=== PATIENT | female | born 1935 | race Caucasian/White ===

== ENCOUNTER 2016-07-09 16:03 | Emergency (ER) | payer OTHER ==
[2016-07-09] MEDS ORDERED: DUONEB (A & A) INH ONE ×2 (17:47→19:39)
[2016-07-09] MEDS ORDERED: SOLU-MEDROL IV ONE (17:48)
--- NOTE | 2016-07-09 17:55 | PROVIDER DOCUMENTATION ---
HPI-Respiratory General <Ailyn Zhou - Last Filed: 07/09/16 18:55> - History of Present Illness-Resp Quality of Pain: reports: none Severity in ED: reports: moderate Onset/Duration: reports: 2 days ago Timing: reports: still present Context: denies: recent foreign travel, recent chemotherapy Exposure: reports: illness exposure Cough Quality/Degree: reports: moderate, sputum Episode Frequency: frequent episodes Current Respiratory Medication Therapy: Initiated albuterol/atrovent inhale Modifying Factors: improves with: nothing Associated Symptoms: reports: denies symptoms Similar Symptoms Previously?: Yes Recently seen or treated by another doctor?: No <Tasia Ruiz - Last Filed: 07/09/16 20:00> <Adam Nam - Last Filed: 07/09/16 21:08> - General Chief Complaint: Flu Symptoms Stated Complaint: flu like symptoms Time Seen by Provider: 07/09/16 17:32 Allergies/Adverse Reactions: Patient Allergies Allergy/AdvReac Type Severity Reaction Status Date / Time codeine Allergy Unknown RASH Verified 07/09/16 16:14 Penicillins Allergy Unknown RASH Verified 07/09/16 16:14 adhesive Allergy RASH Verified 07/09/16 16:14 Egg Derived Allergy VOMITING Verified 07/09/16 16:14 aspirin AdvReac Unknown Verified 07/09/16 16:14 Home Medications: Home Medication List Medication Instructions Recorded Confirmed Last Taken Type Albuterol Sulfate [Albuterol 8.5 gm IH Q4-6H PRN PRN #1 07/09/16 Unknown Rx Sulfate Hfa] hfa.aer.ad Fluticasone/Salmet 250/50 INH 14 puff .SEE ORDER DIRECTED 07/09/16 07/09/16 Unknown History [Advair 250/50 Diskus] Ipratropium/Albuterol INH 120 puff .SEE ORDER DIRECTED 07/09/16 07/09/16 Unknown History [Combivent Respimat Inhaler] Levofloxacin [Levaquin] 750 mg PO DAILY #7 tablet 07/09/16 Unknown Rx Metoprolol Succinate 50 mg PO QAM 07/09/16 07/09/16 Unknown History Pravastatin Sodium 40 mg PO QPM 07/09/16 07/09/16 Unknown History Prednisone 60 mg PO DAILY #14 tablet 03/01/17 Unknown Rx - History of Present Illness-Resp Nature of Presenting Problem: A 81 y/o F with multiple PMH presented with complains of new onset of SOB cough along with URI symptoms, had sick contacts recently with URI symptoms, denies CP /n/v/d/luu/abd pain (Tasia Ruiz) Review of Systems - Adult - REVIEW OF SYSTEMS - ADULT Constitutional: reports: no symptoms reported Eyes: reports: no symptoms reported Ears, Nose, Mouth & Throat: reports: no symptoms reported Cardiovascular: reports: no symptoms reported Respiratory: reports: see HPI Gastrointestinal: reports: no symptoms reported Genitourinary: reports: no symptoms reported Musculoskeletal: reports: no symptoms reported Integumentary: reports: no symptoms reported Neurological: reports: no symptoms reported Psychiatric: reports: no symptoms reported Endocrine: reports: no symptoms reported Hematologic/Lymphatic: reports: no symptoms reported Allergic/Immunologic: reports: no symptoms reported All Other Systems: Reviewed and Negative <Tasia Ruiz - Last Filed: 07/09/16 20:00> Past History - Adult - PAST MEDICAL HISTORY-ADULT Review of Records: reports: Old Records Reviewed, Nursing Assessment Review, Medications Reviewed, Social history reviewed & non-contributory. Major Childhood Illnesses: reports: denies history Cardiovascular: reports: denies history Respiratory: reports: asthma, COPD Gastrointestinal: reports: diverticulosis, polyps Obstetrical/Gynecological: reports: fibroids Genitourinary: reports: other (complex cyst, left kidney) Musculoskeletal: reports: spinal fracture (compression fracture of T6) Neurological: reports: denies history Endocrine/Immune: reports: denies history Other Conditions: reports: denies history - PRIOR SURGERIES/PROCEDURES Surgical/Procedure History: reports: colonoscopy, BTL, other (partial colectomy) - PRIOR HOSPITALIZATIONS Prior Hospitalizations: reports: for other non-related - IMMUNIZATION STATUS Childhood Immunizations: See Nurse Assessment Flu Vaccine: See Nurse Assessment - FAMILY HISTORY Family History: cancer (lymphoma. ovarian) <Tasia Ruiz - Last Filed: 07/09/16 20:00> Physical Exam-General - PHYSICAL EXAM-ADULT Initial Vital Signs Reviewed: Yes - CONSTITUTIONAL General Appearance: appears well, mild distress - EYES Eyes: PERRL/EOMI, pink conjunctivae, anisocoria - HEAD, EARS, NOSE, MOUTH & THROAT HENMT: normocephalic/atraumatic, moist mucous membranes, normal ENT inspection - NECK Neck: non-tender, full range of motion - RESPIRATORY Respiratory: rales, rhonchi, wheezing - CARDIOVASCULAR Cardiovascular: normal peripheral pulses, regular rate, rhythm, no edema, no gallop, no JVD - GASTROINTESTINAL (ABDOMEN) Abdominal Exam: normal bowel sounds, non tender, soft - GENITOURINARY Female Genitalia/Pelvic Exam: deferred - MUSCULOSKELETAL Back Exam: normal inspection, no CVA tenderness Extremity: normal range of motion, non-tender - SKIN Integumentary: normal color, normal turgor - NEUROLOGIC Neurologic: commercial loan officer II-XII nml as tested, grossly normal, no motor/sensory deficits - PSYCHIATRIC Psych/Mental Status: normal mood/affect <Tasia Ruiz - Last Filed: 07/09/16 20:00> Progress - EKG 1 Time of EKG reading by physician:: 18:39 EKG Read and Signed by:: Kristian Stephen EKG Interpretation (*Must complete 3 of following elements*): Abnormal Rate: 84 Rhythm: NSR with frequent PACs Comments: left anterior fascicular block <Ailyn Zhou - Last Filed: 07/09/16 18:55> - XRAY 1 XRAY Study: Chest Impression: See EMR Report (unchanged from previous one) - CHANGE OF SHIFT REPORT (ED Provider) Report Given and Care Transferred to:: Arun Nam Items Pending: Labs <Tasia Ruiz - Last Filed: 07/09/16 20:00> - CT/MRI 1 CT Study: Thorax (No definite PE, COPD, Otherwise NAD ([place])) CT Results: See note <Adam Nam - Last Filed: 07/09/16 21:08> - PLAN OF CARE/RESULTS Progress/Plan/Lab Results: Laboratory Tests 07/09/16 07/09/16 07/09/16 18:15 18:15 18:15 WBC 6.15 RBC 5.13 Hgb 15.8 Hct 48.0 H MCV 93.6 MCH 30.8 MCHC 32.9 L RDW Std Deviation 13.7 Plt Count 154 MPV 11.8 H Immature Gran % (Auto) 0.3 Neut % (Auto) 65.7 Lymph % (Auto) 15.0 L [place] % (Auto) 18.0 H Eos % (Auto) 0.5 Baso % (Auto) 0.5 Immature Gran # (Auto) 0.02 Neut # (Auto) 4.04 Lymph # (Auto) 0.92 L [place] # (Auto) 1.11 H Eos # (Auto) 0.03 Baso # (Auto) 0.03 PT INR PTT (Actin FS) Sodium 141 Potassium 4.2 Chloride 101 Carbon Dioxide 26 Anion Gap 14 BUN 16 Creatinine 0.9 Estimated GFR/1.73 m2 60 BUN/Creatinine Ratio 18 Glucose 103 Calculated Osmolality 283 Calcium 9.3 Magnesium 2.2 Total Bilirubin 0.33 AST 16 ALT 10 Alkaline Phosphatase 85 Creatine Kinase 37 Troponin T Gmx-Y-Ughqdkpduat Pept 246 Total Protein 6.6 Albumin 3.9 Globulin 2.7 Albumin/Globulin Ratio 1.4 07/09/16 07/09/16 18:15 18:15 WBC RBC Hgb Hct MCV MCH MCHC RDW Std Deviation Plt Count MPV Immature Gran % (Auto) Neut % (Auto) Lymph % (Auto) [place] % (Auto) Eos % (Auto) Baso % (Auto) Immature Gran # (Auto) Neut # (Auto) Lymph # (Auto) [place] # (Auto) Eos # (Auto) Baso # (Auto) PT 10.5 INR 0.99 PTT (Actin FS) 28.3 Sodium Potassium Chloride Carbon Dioxide Anion Gap BUN Creatinine Estimated GFR/1.73 m2 BUN/Creatinine Ratio Glucose Calculated Osmolality Calcium Magnesium Total Bilirubin AST ALT Alkaline Phosphatase Creatine Kinase Troponin T < 0.010 Msg-T-Afjnwiricwq Pept Total Protein Albumin Globulin Albumin/Globulin Ratio Orders Category Date Time Status Cardiac Monitoring DIRECTED Care 07/09/16 17:46 Active Saline Loc NOW Care 07/09/16 17:46 Active CHEST-2 VIEWS [RAD] Stat Exams 07/09/16 17:46 Taken CBC WITH ELECTRONIC DIFF [HEME] Stat Lab 07/09/16 18:15 Completed CK PROFILE [SP CHEM] Stat Lab 07/09/16 18:15 Completed COMPREHENSIVE METABOLIC PANEL [CHEM] Stat Lab 07/09/16 18:15 Completed DIRECT STREP Stat Lab 07/09/16 16:07 Completed INFLUENZA SCREEN A/B Stat Lab 07/09/16 16:07 Completed MAGNESIUM [CHEM] Stat Lab 07/09/16 18:15 Completed PRO B-NATRIURETIC PEPTIDE Stat Lab 07/09/16 18:15 Completed PROTIME WITH INR [COAG] Stat Lab 07/09/16 18:15 Completed PTT [COAG] Stat Lab 07/09/16 18:15 Completed TROPONIN T Stat Lab 07/09/16 18:15 Completed Albuterol 2.5MG/Ipratrop 0.5MG [Duoneb (A & A)] Med 07/09/16 17:47 Discontinued 3 ml INH NOW ONE Albuterol 2.5MG/Ipratrop 0.5MG [Duoneb (A & A)] Med 07/09/16 19:39 Discontinued 3 ml INH NOW ONE Levofloxacin 750 mg/D5w [Levaquin 750 mg/D5w] 150 ml Med 07/09/16 19:39 Active IV NOW Methylprednisolone Sod Succ [Solu-Medrol] Med 07/09/16 17:48 Discontinued 125 mg IV NOW ONE Aerosol Treatments Routine Oth 07/09/16 17:47 Active Aerosol Treatments Routine Oth 07/09/16 19:39 Active Aerosol Treatments Stat Oth 07/09/16 17:47 Active Aerosol Treatments Stat Oth 07/09/16 19:39 Active EKG [EKG] Stat Ther 07/09/16 17:46 Ordered Vital Signs Temp Pulse Resp BP Pulse Ox 07/09/16 18:49 90 23 105/65 92 L 07/09/16 16:04 99.5 F 58 L 20 102/53 95 codeine Allergy (Unknown, Verified 07/09/16 16:14) RASH Penicillins Allergy (Unknown, Verified 07/09/16 16:14) RASH adhesive Allergy (Verified 07/09/16 16:14) RASH Egg Derived Allergy (Verified 07/09/16 16:14) VOMITING aspirin Adverse Reaction (Verified 07/09/16 16:14) Unknown Bleeding Fluticasone/Salmet 250/50 INH [Advair 250/50 Diskus] 14 puff .SEE ORDER DIRECTED 07/09/16 Ipratropium/Albuterol INH [Combivent Respimat Inhaler] 120 puff .SEE ORDER DIRECTED 07/09/16 Metoprolol Succinate 50 mg PO QAM 07/09/16 Pravastatin Sodium 40 mg PO QPM 07/09/16 Laboratory 07/09/16 07/09/16 07/09/16 18:15 18:15 18:15 WBC RBC Hgb Hct MCV MCH MCHC RDW Std Deviation Plt Count MPV Immature Gran % (Auto) Neut % (Auto) Lymph % (Auto) [place] % (Auto) Eos % (Auto) Baso % (Auto) Immature Gran # (Auto) Neut # (Auto) Lymph # (Auto) [place] # (Auto) Eos # (Auto) Baso # (Auto) PT 10.5 INR 0.99 PTT (Actin FS) 28.3 Sodium Potassium Chloride Carbon Dioxide Anion Gap BUN Creatinine Estimated GFR/1.73 m2 BUN/Creatinine Ratio Glucose Calculated Osmolality Calcium Magnesium Total Bilirubin AST ALT Alkaline Phosphatase Creatine Kinase Troponin T < 0.010 Pkg-W-Obdhowzecqn Pept 246 Total Protein Albumin Globulin Albumin/Globulin Ratio 07/09/16 07/09/16 18:15 18:15 WBC 6.15 RBC 5.13 Hgb 15.8 Hct 48.0 H MCV 93.6 MCH 30.8 MCHC 32.9 L RDW Std Deviation 13.7 Plt Count 154 MPV 11.8 H Immature Gran % (Auto) 0.3 Neut % (Auto) 65.7 Lymph % (Auto) 15.0 L [place] % (Auto) 18.0 H Eos % (Auto) 0.5 Baso % (Auto) 0.5 Immature Gran # (Auto) 0.02 Neut # (Auto) 4.04 Lymph # (Auto) 0.92 L [place] # (Auto) 1.11 H Eos # (Auto) 0.03 Baso # (Auto) 0.03 PT INR PTT (Actin FS) Sodium 141 Potassium 4.2 Chloride 101 Carbon Dioxide 26 Anion Gap 14 BUN 16 Creatinine 0.9 Estimated GFR/1.73 m2 60 BUN/Creatinine Ratio 18 Glucose 103 Calculated Osmolality 283 Calcium 9.3 Magnesium 2.2 Total Bilirubin 0.33 AST 16 ALT 10 Alkaline Phosphatase 85 Creatine Kinase 37 Troponin T Kbu-Z-Pikzzpyfzax Pept Total Protein 6.6 Albumin 3.9 Globulin 2.7 Albumin/Globulin Ratio 1.4 (Tasia Ruiz) Discussed results and plan of care with patient. Patient agrees with plan and verbalizes understanding. Vital Signs Temp Pulse Resp BP Pulse Ox 07/09/16 20:29 99 H 18 07/09/16 19:45 91 H 21 107/73 91 L 07/09/16 18:49 90 23 105/65 92 L 07/09/16 16:04 99.5 F 58 L 20 102/53 95 codeine Allergy (Unknown, Verified 07/09/16 16:14) RASH Penicillins Allergy (Unknown, Verified 07/09/16 16:14) RASH adhesive Allergy (Verified 07/09/16 16:14) RASH Egg Derived Allergy (Verified 07/09/16 16:14) VOMITING aspirin Adverse Reaction (Verified 07/09/16 16:14) Unknown Bleeding Albuterol Sulfate [Albuterol Sulfate Hfa] 8.5 gm IH Q4-6H PRN PRN #1 hfa.aer.ad 07/09/16 Fluticasone/Salmet 250/50 INH [Advair 250/50 Diskus] 14 puff .SEE ORDER DIRECTED 07/09/16 Ipratropium/Albuterol INH [Combivent Respimat Inhaler] 120 puff .SEE ORDER DIRECTED 07/09/16 Levofloxacin [Levaquin] 750 mg PO DAILY #7 tablet 07/09/16 Metoprolol Succinate 50 mg PO QAM 07/09/16 Pravastatin Sodium 40 mg PO QPM 07/09/16 Prednisone 60 mg PO DAILY #14 tablet 07/09/16 Laboratory 07/09/16 07/09/16 07/09/16 19:50 18:15 18:15 WBC RBC Hgb Hct MCV MCH MCHC RDW Std Deviation Plt Count MPV Immature Gran % (Auto) Neut % (Auto) Lymph % (Auto) [place] % (Auto) Eos % (Auto) Baso % (Auto) Immature Gran # (Auto) Neut # (Auto) Lymph # (Auto) [place] # (Auto) Eos # (Auto) Baso # (Auto) PT 10.5 INR 0.99 PTT (Actin FS) 28.3 D-Dimer 0.86 H Sodium Potassium Chloride Carbon Dioxide Anion Gap BUN Creatinine Estimated GFR/1.73 m2 BUN/Creatinine Ratio Glucose Calculated Osmolality Calcium Magnesium Total Bilirubin AST ALT Alkaline Phosphatase Creatine Kinase Troponin T < 0.010 Hsw-Y-Cttjydpcwtz Pept Total Protein Albumin Globulin Albumin/Globulin Ratio 07/09/16 07/09/16 07/09/16 18:15 18:15 18:15 WBC 6.15 RBC 5.13 Hgb 15.8 Hct 48.0 H MCV 93.6 MCH 30.8 MCHC 32.9 L RDW Std Deviation 13.7 Plt Count 154 MPV 11.8 H Immature Gran % (Auto) 0.3 Neut % (Auto) 65.7 Lymph % (Auto) 15.0 L [place] % (Auto) 18.0 H Eos % (Auto) 0.5 Baso % (Auto) 0.5 Immature Gran # (Auto) 0.02 Neut # (Auto) 4.04 Lymph # (Auto) 0.92 L [place] # (Auto) 1.11 H Eos # (Auto) 0.03 Baso # (Auto) 0.03 PT INR PTT (Actin FS) D-Dimer Sodium 141 Potassium 4.2 Chloride 101 Carbon Dioxide 26 Anion Gap 14 BUN 16 Creatinine 0.9 Estimated GFR/1.73 m2 60 BUN/Creatinine Ratio 18 Glucose 103 Calculated Osmolality 283 Calcium 9.3 Magnesium 2.2 Total Bilirubin 0.33 AST 16 ALT 10 Alkaline Phosphatase 85 Creatine Kinase 37 Troponin T Vyf-V-Wywggatzkap Pept 246 Total Protein 6.6 Albumin 3.9 Globulin 2.7 Albumin/Globulin Ratio 1.4 Orders Category Date Time Status Cardiac Monitoring DIRECTED Care 07/09/16 17:46 Active Saline Loc NOW Care 07/09/16 17:46 Active CHEST-2 VIEWS [RAD] Stat Exams 07/09/16 17:46 Taken CTA [ANGIOGRAM/PULMONARY ARTERIES] [CT] Stat Exams 07/09/16 20:20 Taken CBC WITH ELECTRONIC DIFF [HEME] Stat Lab 07/09/16 18:15 Completed CK PROFILE [SP CHEM] Stat Lab 07/09/16 18:15 Completed COMPREHENSIVE METABOLIC PANEL [CHEM] Stat Lab 07/09/16 18:15 Completed DIRECT STREP Stat Lab 07/09/16 16:07 Completed Ddimer [D-DIMER] [CHEM] Stat Lab 07/09/16 19:50 Completed INFLUENZA SCREEN A/B Stat Lab 07/09/16 16:07 Completed MAGNESIUM [CHEM] Stat Lab 07/09/16 18:15 Completed PRO B-NATRIURETIC PEPTIDE Stat Lab 07/09/16 18:15 Completed PROTIME WITH INR [COAG] Stat Lab 07/09/16 18:15 Completed PTT [COAG] Stat Lab 07/09/16 18:15 Completed TROPONIN T Stat Lab 07/09/16 18:15 Completed Albuterol 2.5MG/Ipratrop 0.5MG [Duoneb (A & A)] Med 07/09/16 17:47 Discontinued 3 ml INH NOW ONE Albuterol 2.5MG/Ipratrop 0.5MG [Duoneb (A & A)] Med 07/09/16 19:39 Discontinued 3 ml INH NOW ONE Levofloxacin 750 mg/D5w [Levaquin 750 mg/D5w] 150 ml Med 07/09/16 19:39 Active IV NOW Methylprednisolone Sod Succ [Solu-Medrol] Med 07/09/16 17:48 Discontinued 125 mg IV NOW ONE Aerosol Treatments Routine Oth 07/09/16 17:47 Completed Aerosol Treatments Routine Oth 07/09/16 19:39 Completed Aerosol Treatments Stat Oth 07/09/16 17:47 Completed Aerosol Treatments Stat Oth 07/09/16 19:39 Completed EKG [EKG] Stat Ther 07/09/16 17:46 Ordered Laboratory Tests 07/09/16 07/09/16 07/09/16 18:15 18:15 18:15 WBC 6.15 RBC 5.13 Hgb 15.8 Hct 48.0 H MCV 93.6 MCH 30.8 MCHC 32.9 L RDW Std Deviation 13.7 Plt Count 154 MPV 11.8 H Immature Gran % (Auto) 0.3 Neut % (Auto) 65.7 Lymph % (Auto) 15.0 L [place] % (Auto) 18.0 H Eos % (Auto) 0.5 Baso % (Auto) 0.5 Immature Gran # (Auto) 0.02 Neut # (Auto) 4.04 Lymph # (Auto) 0.92 L [place] # (Auto) 1.11 H Eos # (Auto) 0.03 Baso # (Auto) 0.03 PT INR PTT (Actin FS) D-Dimer Sodium 141 Potassium 4.2 Chloride 101 Carbon Dioxide 26 Anion Gap 14 BUN 16 Creatinine 0.9 Estimated GFR/1.73 m2 60 BUN/Creatinine Ratio 18 Glucose 103 Calculated Osmolality 283 Calcium 9.3 Magnesium 2.2 Total Bilirubin 0.33 AST 16 ALT 10 Alkaline Phosphatase 85 Creatine Kinase 37 Troponin T Hdx-B-Bnffbesyhqs Pept 246 Total Protein 6.6 Albumin 3.9 Globulin 2.7 Albumin/Globulin Ratio 1.4 07/09/16 07/09/16 07/09/16 18:15 18:15 19:50 WBC RBC Hgb Hct MCV MCH MCHC RDW Std Deviation Plt Count MPV Immature Gran % (Auto) Neut % (Auto) Lymph % (Auto) [place] % (Auto) Eos % (Auto) Baso % (Auto) Immature Gran # (Auto) Neut # (Auto) Lymph # (Auto) [place] # (Auto) Eos # (Auto) Baso # (Auto) PT 10.5 INR 0.99 PTT (Actin FS) 28.3 D-Dimer 0.86 H Sodium Potassium Chloride Carbon Dioxide Anion Gap BUN Creatinine Estimated GFR/1.73 m2 BUN/Creatinine Ratio Glucose Calculated Osmolality Calcium Magnesium Total Bilirubin AST ALT Alkaline Phosphatase Creatine Kinase Troponin T < 0.010 Aqr-X-Fixceyrmquj Pept Total Protein Albumin Globulin Albumin/Globulin Ratio (Adam Nam) Departure <Ailyn Zhou - Last Filed: 07/09/16 18:55> - Departure Time of Disposition Order: 19:44 Certified Medical Emergency: Emergent <Tasia Ruiz - Last Filed: 07/09/16 20:00> - Departure Time of Disposition Order: 21:07 Certified Medical Emergency: Emergent <Adam Nam - Last Filed: 07/09/16 21:08> - Departure DIAGNOSIS: COPD exacerbation, Cough URI (upper respiratory infection) Qualifiers: URI type: unspecified URI Qualified Code(s): J06.9 - Acute upper respiratory infection, unspecified Disposition: HOME 01 Condition: Good Additional Instructions: Follow up with primary care physician Take medications as directed Return to ED for any concerns or worsening of symptoms ED Follow Up Instructions: You have been treated by a care provider in the Emergency Department. These instructions are being provided to you so you can have an understanding of how to care for yourself upon discharge. Upon discharge from the Emergency Department, you are responsible for making arrangements for follow-up care by a physician of your choice. Take all prescribed medications as directed. Return to the Emergency Department immediately for any new or worsening symptoms. You may call the Physician Referral phone number at [phone] to obtain a list of Physicians who are taking new patients. Prescriptions: Albuterol Sulfate [Albuterol Sulfate Hfa] 8.5 gm IH Q4-6H PRN PRN #1 hfa.aer.ad PRN Reason: wheezing, short of breath Levofloxacin [Levaquin] 750 mg PO DAILY #7 tablet Prednisone 60 mg PO DAILY #14 tablet Referrals: Leni Tatum MD [Primary Care Provider] - Instructions: Chronic Obstructive Pulmonary Disease Exacerbation, Dynl-[id number] , Cough, Adult, [id number]-[id number], Upper Respiratory Infection, Adult, Deiq-[id number] Attestation - Physician/ REJI Attestation Patient care was provided by Advanced Practice Provider:: Yes Advanced Practice Provider:: Adam Nam Advanced Practice Provider documentation review:: The Mid-level provider documentation, treatment plan and medical decision making was reviewed by the physician who agrees with all treatment and medical decision making by the MLP. The physician spent face to face time with patient:: Yes <Adam Nam - Last Filed: 07/09/16 21:08> Physician Attestation
[2016-07-09 18:39] LABS: MANUAL DIFF NEEDED? NO
[2016-07-09 18:41] LABS: BASO% 0.5 % (0.0-0.8); EOS# 0.03 X1000 (0.0-0.7); EOS% 0.5 % (0.0-10.0); HEMOGLOBIN 15.8 g/dL (12.0-16.0); IMM GRAN# 0.02 X1000 (0.0-0.04); IMM GRAN% 0.3 % (0.0-0.5); LYMPH# 0.92 X1000 (1.2-3.4); MCH 30.8 PG (27-31); MCHC 32.9 g/dL (33-37); MCV 93.6 FL (81-99); MONO# 1.11 X1000 (0.11-0.59); MPV 11.8 FL (7.4-10.4); NEUT% 65.7 % (42.2-75.2); PLT 154 X1000 (130-400); RBC 5.13 XMIL (4.2-5.4)
[2016-07-09 18:50] LABS: INR 0.99; PROTIME 10.5 Seconds (9.2-11.7); PTT 28.3 Seconds (22.0-36.0)
[2016-07-09 19:06] LABS: ALBUMIN 3.9 g/dL (3.5-5.0); CALCIUM 9.3 mg/dL (8.8-10.2); MAGNESIUM 2.2 mg/dL (1.5-2.7); POTASSIUM 4.2 mmol/L (3.5-5.1); TOTAL BILIRUBIN 0.33 mg/dL (0.20-1.00); TOTAL PROTEIN 6.6 g/dL (6.3-8.3)
[2016-07-09] MEDS ORDERED: LEVAQUIN 750 MG/D5W 150 ML IV ONE (19:39)
[2016-07-09 19:46] VITALS: BP 107/73
--- NOTE | 2016-07-10 05:49 | EKG Report ---
Test Performed on : 07/09/2016 6:39:58 PM Test Reason : SOB Blood Pressure : / mmHG Vent. Rate : 084 BPM Atrial Rate : 083 BPM P-R Int : 000 ms QRS Dur : 094 ms QT Int : 376 ms P-R-T Axes : 000 -62 058 degrees QTc Int : 444 ms Atrial fibrillation. Left anterior fascicular block Abnormal ECG When compared with ECG of 30-MAY-2013 15:41, Atrial fibrillation. has replaced Sinus rhythm. Unconfirmed Result
--- NOTE | 2016-07-10 06:34 | Diag Imaging Result Document ---
PROCEDURE NAME: CHEST-2 VIEWS - 07/09/2016 FRONTAL AND LATERAL CHEST, TWO VIEWS: COMPARISON: Compared to 08/19/2014. FINDINGS: The lungs are well expanded. Mild increased AP diameter to the chest. Heart is enlarged. There is mild central vascular prominence. No pleural effusions. No consolidation. No free air beneath the diaphragm. There is calcified granuloma in the upper right lung. IMPRESSION: 1. Mild cardiomegaly with mild central vascular distension. 2. Emphysema.
--- NOTE | 2016-07-10 08:29 | Diag Imaging Result Document ---
PROCEDURE NAME: ANGIOGRAM/PULMONARY ARTERIES - 07/09/2016 CT OF THE CHEST WITH INTRAVENOUS CONTRAST: FINDINGS: There are no previous thoracic studies. There is an ill-defined low attenuation mass in the right thyroid lobe measuring 2.5 cm in diameter. There is some subcarinal and right hilar adenopathy. There are no apparent filling defects in the pulmonary arteries. The aorta is slightly ectatic, the ascending aorta measuring up to 4.3 cm in diameter. There is no evidence of dissection. There are no abnormal fluid collections present. 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 There is apparent COPD. There is apparent fibrosis or atelectasis in the costophrenic sulci bilaterally. This was not apparent on the abdominal study of 08/12/2014. There is a low-attenuation lesion posteriorly in the right hepatic lobe on image 168 which was also present at the time of the previous study. IMPRESSION: No evidence of pulmonary emboli. Bibasilar atelectasis. Ectasia of the ascending aorta. Minimal mediastinal and right hilar adenopathy. Right thyroid mass.
== END 2016-07-09 22:09 | disposition home or self-care (01) ==
LOC: EDBD → EDUNIT# → ED 16:03
DX: J44.1 Chronic obstructive pulmonary disease with (acute) exacerbation (principal); J06.9 Acute upper respiratory infection, unspecified; R05 Cough; R94.31 Abnormal electrocardiogram [ECG] [EKG]; R06.02 Shortness of breath; R06.2 Wheezing; J45.909 Unspecified asthma, uncomplicated; Z79.899 Other long term (current) drug therapy; Z90.49 Acquired absence of other specified parts of digestive tract
CPT/HCPCS: 71020; 71275; 80053; 82550; 83735; 83880; 84484; 85025; 85379; 85610; 85730; 87081; 87430; 87804; 93005; 94640; J2930; Q9967

== ENCOUNTER 2017-01-27 17:17 | Inpatient (IN) ==
[2017-01-27] MEDS ORDERED: XANAX PO PRN (18:06)
[2017-01-27] MEDS: ZOFRAN IV PRN (18:53)
[2017-01-27] MEDS: DILAUDID IV PRN ×2 (18:55→22:21)
[2017-01-27] MEDS: DUONEB (A & A) INH PRN (19:13)
[2017-01-27] MEDS: ADVAIR 250/50 DISKUS INH SCH (21:10)
--- NOTE | 2017-01-27 21:41 | HISTORY AND PHYSICAL ---
CHIEF COMPLAINT: Intractable mid back pain after a fall for the last 1 week. HISTORY OF PRESENT ILLNESS: She is an 81-year-old white female who was evaluated in my office with a fall, sustained injury to the mid back, pain. Initial x-rays were negative. She was sent home on symptomatic treatment. She returned to the office without any improvement. She was given a steroid shot, followed by MRI thoracic spine. It showed a T4 compression fracture with mild retropulsion with ventral effacement. No myelopathy signs. No weakness in both legs other than pain at the mid back radiating towards the left side. Basically admitted to the hospital for conservative management. If fails to improve, we will transfer to [facility] for kyphoplasty. PAST MEDICAL HISTORY: Nonobstructive CAD with LAD disease. COPD. History of shingles on the right T6, 2014. Compression fracture at T4. Tobacco abuse. Diverticulosis. Osteopenia. B12 deficiency. Anemia. Paroxysmal tachycardia, status post ablation. Complex left renal cyst, stable. Uterine fibroids. Vitamin D deficiency. PAST SURGICAL HISTORY: Partial colectomy. Tubal . Bilateral cataract surgery. Ablation, Fall 2014. MEDICATIONS: Advair 1 puff p.o. b.i.d., Coreg 3.125 p.o. b.i.d., Lasix 20 daily, Medrol Dosepak, metoprolol 50 daily, [place] 7.5 b.i.d., Spiriva 18 mcg daily, sulindac 200 daily, vitamin D 50,000 units once a week, Wellbutrin 150 daily, Zanaflex 4 mg daily. ALLERGIES: Codeine. Keflex. Penicillin. SOCIAL HISTORY: . One son. Lives in [place]. Quit smoking 2 months ago. Housewife. FAMILY HISTORY: Father of old age at 96 from hip fracture complications. Mother of ovarian cancer at 70. Sister had stomach cancer and lymphoma. HEALTH MAINTENANCE: Flu vaccine refused. Pneumococcal vaccine 2016. DEXA scan 2014. Pap smear 2011. Colonoscopy 10/2014. REVIEW OF SYSTEMS: HEENT: No headache. No vision problem. No earache. No sore throat. Neck: No goiter. No lymphadenopathy. No bruit. Cardiopulmonary: No chest pain, shortness of breath, wheezing. Mid back pain radiating to the left side, pain is unbearable, 9/10. GI: No nausea, vomiting, abdominal pain. No altered bowel habits. No bleeding per rectum. : No history of hesitancy, frequency, hematuria, dysuria. Extremities: No swelling of feet. No weakness in the legs. No lower back pain. Neurologic: No obvious weakness. PHYSICAL EXAMINATION: VITAL SIGNS: Afebrile. Pulse is 75. Blood pressure is 120/75. 5 feet 6 inches tall, 165 pounds. Oxygen saturation is 92% on room air. HEENT: Atraumatic, normocephalic. Pupils equal, reactive to light. TMs are normal. Nose and throat within normal limits. NECK: Supple. No lymphadenopathy. No goiter. CHEST: Bilateral air entry. Expiratory wheezing. HEART: Heart sounds are regular. BREAST: Exam deferred. ABDOMEN: Belly is soft, nontender. Good bowel sounds. No masses palpable. No peripheral edema, cyanosis. NEUROLOGIC: No obvious neurological deficits. LABORATORIES/IMAGING: MRI of thoracic spine: T4 compression fracture with mild retropulsion with mild effacement of ventral thecal sac. No cord compression. ASSESSMENT AND PLAN: An 81-year-old white female admitted to the hospital with acute T4 compression fracture with ventral effacement, unbearable pain. Plan is conservative management. 1. IV steroids, IV hydromorphone and IV Zofran. 2. Back brace. 3. Physical therapy consult. 4. DVT, GI prophylaxis with Lovenox, Protonix. 5. Reconcile home medicine. 6. COPD, bronchodilators as directed. If things will not get better, consider going to the outpatient clinic with spine and neurology for kyphoplasty. cc: John Tatum MD
[2017-01-27] MEDS: PRAVACHOL PO SCH (22:40)
[2017-01-27] MEDS: PROTONIX IV SCH (22:40)
[2017-01-27] MEDS: SOLU-MEDROL IV SCH (22:41)
[2017-01-28] MEDS: ZOFRAN IV PRN (04:00)
[2017-01-28] MEDS: DILAUDID IV PRN ×4 (04:00→19:53)
[2017-01-28] MEDS: SOLU-MEDROL IV SCH ×3 (07:18→23:02)
[2017-01-28] MEDS: SPIRIVA INH SCH (07:30)
[2017-01-28] MEDS: ADVAIR 250/50 DISKUS INH SCH ×2 (07:33→21:20)
[2017-01-28] MEDS: LOVENOX SUBQ SCH (08:07)
[2017-01-28] MEDS: COREG PO SCH (08:07)
[2017-01-28] MEDS ORDERED: DUONEB (A & A) INH ONE (12:24)
[2017-01-28] MEDS: DUONEB (A & A) INH PRN (12:37)
--- NOTE | 2017-01-28 13:59 | Diag Imaging Result Doc PS360 ---
EXAM: CHEST-2 VIEWS HISTORY: sob, decreased 02 sat TECHNIQUE: PA and lateral chest COMMENT: There is no evidence of acute cardiac or pulmonary disease. There is some apparent fibrosis in the left costophrenic angle which has not changed since 07/31/2016. There is been no apparent change since 07/26/2016. IMPRESSION: Stable chest. Electronically signed by Oziel Yarbrough 01/28/2017 1:56 PM
[2017-01-28] MEDS: SODIUM CHLORIDE 0.9% INJ SCH (19:59)
[2017-01-28] MEDS: PRAVACHOL PO SCH (19:59)
[2017-01-28] MEDS: PROTONIX IV SCH (23:03)
--- NOTE | 2017-01-28 23:03 | PROGRESS NOTE ---
DATE: 01/28/2017 SUBJECTIVE: The patient pain is a little better, 4/10. No radiation. No focal symptoms. REVIEW OF SYSTEMS: Shortness of breath, and little bit anxiety. OBJECTIVE: Vital signs: Temperature is 97 degrees, blood pressure is 120/61, 5 feet 6 inches, 165 pounds. Oxygen saturation is 92% on nasal cannula. HEENT: Within normal limits. Neck: Supple. No lymphadenopathy. Chest: Wheezing. Heart: Sounds are regular. Abdomen: Belly is soft, nontender. Good bowel sounds. No masses palpable. Extremities: No peripheral edema, cyanosis. Neurologic: No obvious neurological deficits. INVESTIGATIONS: Chest x-ray: Stable chest. ASSESSMENT AND PLAN: 1. T4 compression fracture. Continue on hydromorphone, IV steroids and also will begin with calcitonin nasal spray, back brace. 2. COPD, continue on nebulizers, Spiriva and Breo. 3. DVT, GI prophylaxis. As per the order sheet. 4. Hyperlipidemia. On Pravachol. We will follow up. We will make the arrangements as an outpatient to see the spine surgeon for kyphoplasty. LEVEL OF DOCUMENTATION: 25 minutes. cc: John Tatum MD
[2017-01-29] MEDS: SOLU-MEDROL IV SCH ×3 (06:24→22:14)
[2017-01-29] MEDS: DUONEB (A & A) INH PRN ×2 (09:00→15:20)
[2017-01-29] MEDS: ADVAIR 250/50 DISKUS INH SCH ×2 (09:00→20:01)
[2017-01-29] MEDS ORDERED: FORTICAL NAS SCH (09:00)
[2017-01-29] MEDS: SPIRIVA INH SCH (09:16)
[2017-01-29] MEDS: COREG PO SCH (10:18)
[2017-01-29] MEDS: LOVENOX SUBQ SCH (10:18)
[2017-01-29] MEDS: DILAUDID IV PRN ×3 (10:37→22:23)
[2017-01-29] MEDS: PROTONIX IV SCH (22:14)
[2017-01-29] MEDS: PRAVACHOL PO SCH (22:14)
[2017-01-29] MEDS: SODIUM CHLORIDE 0.9% INJ SCH (22:14)
[2017-01-30] MEDS: SOLU-MEDROL IV SCH (06:33)
--- NOTE | 2017-01-30 06:35 | PROGRESS NOTE ---
DATE: 01/29/2017 SUBJECTIVE: Pain is better 1/10, a little bit shortness of breath. Itching from Spiriva. REVIEW OF SYSTEMS: None reported. PHYSICAL EXAMINATION: Afebrile. Vitals are stable.HEENT: Within normal limits. Neck: Supple. No lymphadenopathy. Chest: Clear. Heart: Sounds are regular. Abdomen: Belly is soft, nontender. Good bowel sounds. No obvious neurological deficits. I's and O's are 930 mL. ASSESSMENT AND PLAN: 1. T4 compression fracture. Pain is improving. Continue present medical therapy. Started on calcitonin. Patient refused to take it. 2. DVT, GI prophylaxis as discussed. 3. Back brace and physical therapy. If the pain is adequately controlled will DC in the morning and follow up as an outpatient for [facility] for the kyphoplasty. Level of documentation 25 minutes. cc: John Tatum MD
[2017-01-30 08:18] VITALS: BP 127/43
[2017-01-30] MEDS: ADVAIR 250/50 DISKUS INH SCH (09:30)
[2017-01-30] MEDS: LOVENOX SUBQ SCH (10:00)
[2017-01-30] MEDS: COREG PO SCH (10:08)
[2017-01-30] MEDS: DILAUDID IV PRN (10:08)
--- NOTE | 2017-02-01 09:01 | DISCHARGE SUMMARY ---
ADMISSION DATE: 01/27/2017 DISCHARGE DATE: 01/30/2017 DISCHARGING DIAGNOSIS: Intractable mid back pain due to T4 compression fracture. SECONDARY DIAGNOSES: 1. Chronic obstructive pulmonary disease. 2. Nonobstructive left anterior descending disease. 3. Chronic tobacco abuse. 4. Diverticulosis. 5. Osteopenia. 6. B12 deficiency. 7. Paroxysmal supraventricular tachycardia. 8. Benign renal cyst on the left side. 9. Uterine fibroids. 10. Metabolic syndrome. BRIEF HISTORY: Please see the H and P that was done on the day of admission. In brief, she is an 81-year-old white female, with a history of falls, with intractable back pain, radicular pain on the right side. Initial workup was negative on the x-rays. The patient was sent home for symptomatic treatment. In the meantime, she returned to the office with intractable pain, not able to sleep. Outpatient MRI showed a T4 compression fracture with retropulsion. Slight effacement of the ventral surface of the spinal cord. There were no neurological deficits. The patient was admitted to the hospital. IV pain control with the steroids and hydromorphone. She was given physical therapy, as well as a back brace. Neurological exam is intact. Pain is much improved. He could not tolerate calcitonin nasal spray. We are discharging home in a stable condition. We will follow up with specimens. DISCHARGE MEDICATIONS: Pravastatin 40 mg daily, Advair 250/50 one puff p.o. b.i.d., Coreg 3.125 daily, vitamin D 50,000 once a week, Combivent 1 puff q.6 hours, Ultracet 1 tab q.6 hours, Medrol Dosepak. DISCHARGE INSTRUCTIONS: Outpatient referral to arthroplasty. Follow up in my office next week. cc: John Tatum MD
== END 2017-01-30 11:35 | disposition home or self-care (01) ==
LOC: 3N 01-28 11:10
PROVIDERS: ADMIT Internal Medicine; ATTEND Internal Medicine

== ENCOUNTER 2017-02-14 14:34 | Inpatient (IN) ==
[2017-02-14] MEDS ORDERED: XYLOCAINE 2% VISCOUS MT ONE (15:24)
--- NOTE | 2017-02-14 15:29 | Diag Imaging Result Doc PS360 ---
CHEST-PORTABLE - 02/14/2017 INDICATION: SOB/cough TECHNIQUE: COMPARISON: 01/28/2017 FINDINGS: There is worsening cardiomegaly and pulmonary vascular congestion. No infiltrates or definite edema. No pneumothorax or large effusion. There may be trace effusions. IMPRESSION: Slight worsening cardiomegaly and pulmonary vascular congestion. Electronically signed by Tae Sherwood 02/14/2017 3:27 PM
[2017-02-14 16:04] LABS: MANUAL DIFF NEEDED? NO
[2017-02-14 16:07] LABS: BASO% 0.2 % (0.0-0.8); EOS# 0.03 X1000 (0.0-0.7); EOS% 0.2 % (0.0-10.0); HEMATOCRIT 43.6 % (37.0-47.0); HEMOGLOBIN 14.5 g/dL (12.0-16.0); IMM GRAN# 0.02 X1000 (0.0-0.04); IMM GRAN% 0.2 % (0.0-0.5); LYMPH# 1.39 X1000 (1.2-3.4); LYMPH% 11.4 % (20.5-51.1); MCH 30.1 PG (27-31); MCHC 33.3 g/dL (33-37); MCV 90.5 FL (81-99); MONO# 1.13 X1000 (0.11-0.59); MONO% 9.2 % (1.7-9.3); MPV 11.8 FL (7.4-10.4); NEUT% 78.8 % (42.2-75.2); PLT 179 X1000 (130-400); RBC 4.82 XMIL (4.2-5.4)
[2017-02-14] MEDS ORDERED: NS 1,000 ML IV ONE ×2 (16:07→18:43)
[2017-02-14] MEDS ORDERED: ZYRTEC LIQUID PO ONE (16:09)
[2017-02-14] MEDS ORDERED: MBX SOLUTION MT ONE (16:14)
[2017-02-14 16:31] LABS: AGAP 12; ALBUMIN 4.2 g/dL (3.5-5.0); ALKALINE PHOSPHATASE 90 U/L (32-104); BUN 12 mg/dL (8-22); CALCIUM 9.5 mg/dL (8.8-10.2); CHLORIDE 102 mmol/L (98-107); COSMO 276; GOT 10 U/L (10-30); GPT 9 U/L (10-36); POTASSIUM 3.9 mmol/L (3.5-5.1); SODIUM 138 mmol/L (136-145); TCO2 24 mmol/L (25-35); TOTAL BILIRUBIN 1.08 mg/dL (0.20-1.00)
[2017-02-14] MEDS ORDERED: ZITHROMAX LIQUID PO ONE (16:55)
[2017-02-14] MEDS ORDERED: ZITHROMAX 500 MG/NS 500 MG/250 ML IVPB IV SCH (17:15)
--- NOTE | 2017-02-14 18:55 | Diag Imaging Result Doc PS360 ---
CT NECK W/CONTRAST - 02/14/2017 INDICATION: trouble swallowing TECHNIQUE: A CT dose reduction protocol was used. COMPARISON: Chest CT 07/18/2016 FINDINGS: There is a heterogeneously enhancing soft tissue mass at the right laryngeal vallecula. This measures 2.5 x 2.2 cm in AP and lateral dimensions. There is an internal hypoenhancing or cystic area measuring about 1.7 cm maximally. There are normal-sized cervical lymph nodes. The right lobe of the thyroid gland is diffusely enlarged and heterogeneously enhancing. In axial dimensions, this measures up to 3.6 x 3.1 cm. This enlarged right lobe of the thyroid gland is stable from the chest CT of 07/18/2016. There is COPD and scarring in the lung apices. There is moderately advanced spondylosis of the cervical spine. There is a moderate compression fracture of T4. There is about 60% loss of height here. This was not present on 07/18/2016. IMPRESSION: 1. Right vallecular mass versus inflammatory collection as described above. Correlate clinically. Direct inspection and management recommended. 2. Stable enlarged heterogeneous right lobe of the thyroid gland consistent with a goiter. 3. Compression fracture at T4. Electronically signed by Tae Sherwood 02/14/2017 6:53 PM
[2017-02-14] MEDS ORDERED: XYLOCAINE 2% VISCOUS MT PRN (19:41)
[2017-02-14] MEDS ORDERED: TYLENOL PR PRN (19:51)
[2017-02-14] MEDS: ADVAIR 250/50 DISKUS INH SCH (19:59)
[2017-02-14] MEDS: DUONEB (A & A) INH SCH (20:02)
[2017-02-15] MEDS: DUONEB (A & A) INH SCH ×4 (03:45→23:48)
[2017-02-15] MEDS ORDERED: NUBAIN IV ONE (06:31)
[2017-02-15 07:03] LABS: MANUAL DIFF NEEDED? NO
[2017-02-15 07:15] LABS: BASO% 0.4 % (0.0-0.8); EOS# 0.07 X1000 (0.0-0.7); EOS% 0.8 % (0.0-10.0); HEMATOCRIT 39.9 % (37.0-47.0); HEMOGLOBIN 13.2 g/dL (12.0-16.0); LYMPH# 1.19 X1000 (1.2-3.4); LYMPH% 13.9 % (20.5-51.1); MCH 30.6 PG (27-31); MCHC 33.1 g/dL (33-37); MCV 92.6 FL (81-99); MONO# 0.95 X1000 (0.11-0.59); MONO% 11.1 % (1.7-9.3); NEUT% 73.8 % (42.2-75.2); PLT 151 X1000 (130-400); RBC 4.31 XMIL (4.2-5.4)
[2017-02-15 07:23] LABS: AGAP 11; BUN 10 mg/dL (8-22); CHLORIDE 105 mmol/L (98-107); COSMO 284; POTASSIUM 3.9 mmol/L (3.5-5.1); SODIUM 143 mmol/L (136-145); TCO2 27 mmol/L (25-35)
[2017-02-15] MEDS: COREG PO SCH (08:37)
[2017-02-15] MEDS: NUBAIN IV PRN ×2 (11:20→17:14)
[2017-02-15] MEDS: NS 1,000 ML IV SCH ×2 (11:21→17:16)
[2017-02-15] MEDS ORDERED: NUBAIN IV SCH (14:00)
[2017-02-15] MEDS ORDERED: DECADRON IV ONE (16:48)
[2017-02-15] MEDS ORDERED: ROCEPHIN 2 GM in NS 50 ML IV ONE (17:00)
[2017-02-15] MEDS ORDERED: SOLU-MEDROL IV STA (17:17)
[2017-02-15] MEDS: ZITHROMAX 500 MG/NS 500 MG/250 ML IVPB IV SCH (18:30)
[2017-02-15] MEDS: ADVAIR 250/50 DISKUS INH SCH (23:48)
[2017-02-16] MEDS: SOLU-MEDROL IV SCH ×3 (01:08→16:15)
[2017-02-16] MEDS: NS 1,000 ML IV SCH ×2 (01:08→14:09)
[2017-02-16] MEDS: DUONEB (A & A) INH SCH ×4 (03:06→21:29)
[2017-02-16] MEDS: ZOFRAN IV PRN (05:30)
[2017-02-16 06:37] LABS: HEMATOCRIT 39.3 % (37.0-47.0); HEMOGLOBIN 13.2 g/dL (12.0-16.0); LYMPH# 0.47 X1000 (1.2-3.4); LYMPH% 7.9 % (20.5-51.1); MANUAL DIFF NEEDED? YES; MCH 30.9 PG (27-31); MCHC 33.6 g/dL (33-37); MONO# 0.07 X1000 (0.11-0.59); MONO% 1.2 % (1.7-9.3); MPV 11.6 FL (7.4-10.4); NEUT% 90.9 % (42.2-75.2); PLT 151 X1000 (130-400); RBC 4.27 XMIL (4.2-5.4)
[2017-02-16 08:02] LABS: BANDS 1 % (0-1); LYMPHS 6 % (21-51); MONO 1 % (1-9)
[2017-02-16] MEDS: COREG PO SCH (08:26)
[2017-02-16] MEDS: ADVAIR 250/50 DISKUS INH SCH ×2 (09:40→19:18)
[2017-02-16] MEDS: NUBAIN IV PRN (14:09)
[2017-02-16] MEDS: ROCEPHIN 2 GM in NS 50 ML IV SCH (16:15)
[2017-02-16] MEDS: ZITHROMAX 500 MG/NS 500 MG/250 ML IVPB IV SCH (16:49)
[2017-02-16 17:21] LABS: ALLEN TEST YES; BE 0.1 mmoll (-3.0-3.0); BLOOD TYPE ARTERIAL; DRAW SITE R RADIAL; METHB 1.1 % (0.0-1.5); O2(CT) 17.1 mL/dL (15.0-23.0); PCO2(98.6) 46 mmHg (35-45); PO2(98.6) 58 mmHg (60-100); SAMPLE BLOOD; THB 13.5 g/dL (11.5-17.4); pH(98.6) 7.36 (7.35-7.45)
[2017-02-16 17:23] LABS: MODALITY CANNULA
--- NOTE | 2017-02-16 17:44 | Diag Imaging Result Doc PS360 ---
EXAM: CHEST-PORTABLE HISTORY: decrease O2 sat TECHNIQUE: Portable upright COMPARISON: 02/14/2017 FINDINGS: The lungs are well expanded. Heart is borderline mildly prominent. There is atelectasis or small infiltrate in the left base. There may be a small left pleural effusion as well. The vessels are less distended than on the prior exam. IMPRESSION: Decreased pulmonary edema. Atelectasis and/or a small infiltrate in the left base with possibly a small pleural effusion. Electronically signed by Conrad Torres 02/16/2017 5:41 PM
[2017-02-17] MEDS: NUBAIN IV PRN ×2 (02:14→20:47)
[2017-02-17] MEDS: SOLU-MEDROL IV SCH ×3 (02:14→17:06)
[2017-02-17] MEDS: DUONEB (A & A) INH SCH ×4 (03:20→21:25)
--- NOTE | 2017-02-17 05:12 | EKG Report ---
Test Performed on : 02/17/2017 01:47:42 AM Test Reason : Chest Pain Blood Pressure : / mmHG Vent. Rate : 061 BPM Atrial Rate : 061 BPM P-R Int : 196 ms QRS Dur : 094 ms QT Int : 434 ms P-R-T Axes : 092 -42 000 degrees QTc Int : 436 ms Normal sinus rhythm. Left axis deviation Pulmonary disease pattern Nonspecific ST abnormality Abnormal ECG When compared with ECG of 25-JUL-2016 11:12, No significant change was found Confirmed by Florin COOMBS, Cyril Bauer ([id number]) on 02/18/2017 7:50:01 AM
[2017-02-17] MEDS: NS 1,000 ML IV SCH ×2 (05:27→17:05)
[2017-02-17 05:34] LABS: HEMATOCRIT 36.1 % (37.0-47.0); HEMOGLOBIN 11.9 g/dL (12.0-16.0); IMM GRAN# 0.03 X1000 (0.0-0.04); IMM GRAN% 0.2 % (0.0-0.5); LYMPH# 0.59 X1000 (1.2-3.4); LYMPH% 4.8 % (20.5-51.1); MANUAL DIFF NEEDED? YES; MCH 30.7 PG (27-31); MCV 93.3 FL (81-99); MONO# 0.45 X1000 (0.11-0.59); MONO% 3.7 % (1.7-9.3); NEUT% 91.3 % (42.2-75.2); PLT 149 X1000 (130-400); RBC 3.87 XMIL (4.2-5.4)
[2017-02-17 05:39] LABS: LYMPHS 2 % (21-51); MONO 4 % (1-9)
[2017-02-17] MEDS: COREG PO SCH (08:29)
[2017-02-17] MEDS: ADVAIR 250/50 DISKUS INH SCH ×3 (09:09→19:39)
[2017-02-17] MEDS: ROCEPHIN 2 GM in NS 50 ML IV SCH (17:05)
[2017-02-17] MEDS: ZITHROMAX 500 MG/NS 500 MG/250 ML IVPB IV SCH (17:05)
[2017-02-17] MEDS: ZOFRAN IV PRN (19:00)
[2017-02-18] MEDS: SOLU-MEDROL IV SCH ×3 (00:30→16:47)
[2017-02-18] MEDS: DUONEB (A & A) INH SCH ×4 (03:38→21:45)
[2017-02-18] MEDS: NS 1,000 ML IV SCH ×2 (06:43→18:49)
[2017-02-18] MEDS ORDERED: AYR NASAL SPRAY NAS PRN (07:11)
[2017-02-18] MEDS: COREG PO SCH (08:32)
[2017-02-18] MEDS ORDERED: XANAX PO SCH (09:00)
[2017-02-18] MEDS: ADVAIR 250/50 DISKUS INH SCH ×2 (10:06→19:25)
[2017-02-18] MEDS ORDERED: MISC. PHARMACY COMMUNICATION SCH (13:15)
[2017-02-18] MEDS: XANAX PO SCH ×2 (15:39→21:19)
[2017-02-18] MEDS: ZITHROMAX 500 MG/NS 500 MG/250 ML IVPB IV SCH (16:47)
[2017-02-18] MEDS: ROCEPHIN 2 GM in NS 50 ML IV SCH (16:47)
[2017-02-19] MEDS: SOLU-MEDROL IV SCH ×3 (00:43→17:49)
[2017-02-19] MEDS: DUONEB (A & A) INH SCH ×4 (03:00→22:15)
[2017-02-19] MEDS: ADVAIR 250/50 DISKUS INH SCH ×2 (07:49→19:40)
[2017-02-19] MEDS: COREG PO SCH (08:13)
[2017-02-19] MEDS: XANAX PO SCH ×3 (08:14→21:13)
[2017-02-19] MEDS ORDERED: VITAMIN D PO SCH (09:00)
[2017-02-19] MEDS: NS 1,000 ML IV SCH (13:36)
[2017-02-19] MEDS: ROCEPHIN 2 GM in NS 50 ML IV SCH (17:25)
[2017-02-19] MEDS: ZITHROMAX 500 MG/NS 500 MG/250 ML IVPB IV SCH (17:50)
[2017-02-19] MEDS: ZOFRAN IV PRN (19:05)
[2017-02-20] MEDS: SOLU-MEDROL IV SCH ×2 (01:36→08:31)
[2017-02-20] MEDS: DUONEB (A & A) INH SCH ×2 (03:24→09:31)
[2017-02-20 07:50] VITALS: BP 153/65
[2017-02-20] MEDS: ADVAIR 250/50 DISKUS INH SCH (07:57)
[2017-02-20] MEDS: COREG PO SCH (08:31)
[2017-02-20] MEDS: XANAX PO SCH (08:31)
[2017-02-20] MEDS: NS 1,000 ML IV SCH (09:34)
== END 2017-02-20 10:50 | disposition home or self-care (01) ==
LOC: 3N 14:34 → ED 14:34 → 3S 02-15 18:41
PROVIDERS: ADMIT Internal Medicine; ATTEND Internal Medicine